=== PATIENT | female | born 1985 | race Caucasian/White ===

== ENCOUNTER 2017-10-19 06:18 | Emergency (ER) | payer SELFPAY ==
[~2017-10-19] VITALS: Ht 160 cm; Wt 90.7 kg
[~2017-10-19 06:18] MED LIST: ASPI81CH PO; Bactrim Ds Tab1 EACH PO; CEPH500 PO; GLYMET1.25 PO; HYDACE5 PO; IBUP800 PO; LEVFLO500 PO; LISHYD1012 PO; Loradamed10 MG PO; Norco 10-325 T1 EACH PO; Norco 7.5-3251 EACH; OXYACE5T PO; OXYACE7.5T PO; PRENA1 CHEW TA1.4 MG PO; PROM25 PO; RANI150 PO; RXLORA1 PO; SODCHL.65S; SULTRIDS PO; TRAM50 PO; VICODIN 5-3001 EACH PO; Zithromax250 MG PO
[2017-10-19] MEDS ORDERED: Bactrim Ds Tab1 EACH PO (07:03)
[2017-10-19] MEDS ORDERED: Ultram50 MG PO (07:03)
== END 2017-10-19 07:14 | disposition home or self-care (01) ==
LOC: ER 06:18
DX: L03.312 Cellulitis of back [any part except buttock and flank] (principal); I10 Essential (primary) hypertension; F17.200 Nicotine dependence, unspecified, uncomplicated
CPT/HCPCS: 10160; 99283

== ENCOUNTER 2017-10-22 03:27 | Emergency (ER) | payer SELFPAY ==
[~2017-10-22] VITALS: Ht 160 cm; Wt 90.7 kg
[~2017-10-22 03:27] MED LIST changes: +Ultram50 MG PO
== END 2017-10-22 06:47 | disposition home or self-care (01) ==
LOC: ER 03:27
DX: L05.01 Pilonidal cyst with abscess (principal); I10 Essential (primary) hypertension; F17.200 Nicotine dependence, unspecified, uncomplicated; Z79.899 Other long term (current) drug therapy
CPT/HCPCS: 10080; 99283

== ENCOUNTER 2019-03-27 11:37 | Emergency (ER) | payer OTHER ==
[~2019-03-27] VITALS: Ht 160 cm; Wt 90.7 kg
[2019-03-27] MEDS ORDERED: Norco 5-325 Ta1 EACH PO (12:24)
== END 2019-03-27 12:56 | disposition home or self-care (01) ==
LOC: ER 11:37
DX: S93.402A Sprain of unspecified ligament of left ankle, initial encounter (principal); X50.9XXA Other and unspecified overexertion or strenuous movements or postures, initial encounter; Z79.899 Other long term (current) drug therapy; I10 Essential (primary) hypertension; F17.210 Nicotine dependence, cigarettes, uncomplicated
CPT/HCPCS: 29515; 73610; 99283-25

== ENCOUNTER 2019-04-22 11:19 | Emergency (ER) | payer OTHER ==
[~2019-04-22] VITALS: Ht 160 cm; Wt 86.2 kg
[~2019-04-22 11:19] MED LIST changes: +Norco 5-325 Ta1 EACH PO
[2019-04-22] MEDS ORDERED: DEXTROMETH PO (14:57)
[2019-04-22] MEDS ORDERED: Zithromax250 MG PO (14:57)
[2019-04-22] MEDS ORDERED: HYDHCL25 PO (14:57)
[2019-04-22] MEDS ORDERED: Ventolin/Prove6.7 GM INH (14:57)
== END 2019-04-22 15:07 | disposition home or self-care (01) ==
LOC: ER 11:19
DX: R05 Cough (principal); I10 Essential (primary) hypertension; F17.210 Nicotine dependence, cigarettes, uncomplicated
CPT/HCPCS: 71046; 99283-25

== ENCOUNTER 2022-02-01 11:21 | Emergency (ER) | payer OTHER ==
[~2022-02-01] VITALS: Ht 160 cm; Wt 90.7 kg
[~2022-02-01 11:21] MED LIST changes: +DEXTROMETH PO; +HYDHCL25 PO; +Ventolin/Prove6.7 GM INH
[2022-02-01] MEDS ORDERED: IBUP200 PO (12:33)
== END 2022-02-01 14:42 | disposition home or self-care (01) ==
LOC: ER 11:21
DX: L05.01 Pilonidal cyst with abscess (principal); I10 Essential (primary) hypertension; F17.210 Nicotine dependence, cigarettes, uncomplicated; Z88.8 Allergy status to other drugs, medicaments and biological substances
CPT/HCPCS: 10080; 99283-25

== ENCOUNTER 2022-09-01 22:20 | Emergency (ER) | payer OTHER ==
[~2022-09-01] VITALS: Ht 162.6 cm; Wt 90.7 kg
[~2022-09-01 22:20] MED LIST changes: +IBUP200 PO
[2022-09-01] MEDS ORDERED: AMOCLA875 PO (22:52)
== END 2022-09-01 23:25 | disposition home or self-care (01) ==
LOC: ER 22:20
DX: K04.7 Periapical abscess without sinus (principal); I10 Essential (primary) hypertension; F17.210 Nicotine dependence, cigarettes, uncomplicated
CPT/HCPCS: 64400; 99283-25; A9270